=== PATIENT | female | born 1970 | race African-American/Black ===

== ENCOUNTER 2016-08-29 14:45 | Emergency (ER) | payer BC ==
[~2016-08-29 14:45] MED LIST: AUGMENTIN PO; DARVOCET-N 1001 TA1 PO; ERYTHROMYCIN333 MG PO; FLEXERIL10 MG PO; KETOPROFEN PO
== END 2016-08-29 19:33 | disposition home or self-care (01) ==
LOC: CFTX 14:45 → CED 14:45 → CFTX 19:25
DX: G89.29 Other chronic pain (principal); M25.561 Pain in right knee; K21.9 Gastro-esophageal reflux disease without esophagitis; I10 Essential (primary) hypertension; F17.210 Nicotine dependence, cigarettes, uncomplicated; Z88.0 Allergy status to penicillin
CPT/HCPCS: 29505; 96372; 99283; J1885